=== PATIENT | male | born 1990 | race Caucasian/White ===

== ENCOUNTER 2018-11-13 16:05 | Emergency (ER) | payer OTHER ==
[~2018-11-13] VITALS: Ht 195.6 cm; Wt 76.9 kg
[2018-11-13] MEDS ORDERED: DIPHENHYDRAMINE 25 MG CAPSULE PO ONE (16:30)
[2018-11-13] MEDS ORDERED: KETOROLAC 30 MG/1 ML IM ONE (16:30)
[2018-11-13] MEDS ORDERED: PROCHLORPERAZINE 5 MG/ML, 2ML IM ONE (16:30)
[2018-11-13] MEDS ORDERED: AMPH20TA2 PO (16:33)
[2018-11-13] MEDS ORDERED: CITA10TA4 PO (16:33)
[2018-11-13] MEDS ORDERED: KETOROLAC 30 MG/1 ML ONE (16:46)
[2018-11-13] MEDS ORDERED: PROCHLORPERAZINE 5 MG/ML, 2ML ONE (16:46)
[2018-11-13] MEDS ORDERED: DIPHENHYDRAMINE 50 MG/ML, 1ML ONE (16:46)
[2018-11-13] MEDS ORDERED: DIPHENHYDRAMINE 25 MG CAPSULE ONE (16:49)
--- NOTE | 2018-11-13 16:56 | NUR ---
PT TO CT
--- NOTE | 2018-11-13 17:05 | NUR ---
PT RETURNED FROM CT, UPRIGHT ON GURNEY AWAKE & CALM, RESPONDS APPROP TO STAFF, NAD AT REST, COMFORT MEASURES PROVIDED, FIREND AT BS, CALL LIGHT WITHIN REACH.
[2018-11-13 17:06] VITALS: BP 137/95
--- NOTE | 2018-11-13 17:43 | NUR ---
Patient given discharge instructions and Rx, they have confirmed that they understand the instructions. Patient ambulatory with steady gait.
== END 2018-11-13 17:44 | disposition home or self-care (01) ==
LOC: ED 17:35
DX: G44.219 Episodic tension-type headache, not intractable (principal)
CPT/HCPCS: 70450; 96372; 99284; J0780; J1885; Q0163